=== PATIENT | male | born 1995 | race Caucasian/White ===

== ENCOUNTER 2017-03-21 09:53 | Emergency (ER) | payer OTHER ==
[~2017-03-21] VITALS: Ht 180.3 cm; Wt 78.0 kg
--- NOTE | ~2017-03-21 | CR173 ---
[facility] A Service of [facility] RADIOLOGY TEXT RESULTS PATIENT: MADAY HENDERSON LOCATION: CFTX : 95 UNIT #: [id number] AGE: [address]: Macey Cornell APRN SEX: M ORDER DR: [id number] [facility] [address] [place], [place] [address] [id number] MR#: [id number] Acc #: [id number] NAME: MADAY HENDERSON : 1995 SEX: M STUDY DATE/TIME: 03/21/2017 10:44 UNIT: [facility] ROOM: STUDY DESCRIPTION: CR Knee 3 Views Rt Attending Physician: Macey Cornell A.P.R.N. Ordering Physician: Ed Doctor [id number] [facility] Primary Care Physician: Primary Care Physician No MEDICAL IMAGING REPORT This report is preliminary unless electronic signature is present EXAM Right knee HISTORY Right knee pain. Basketball injury 2 days ago. TECHNIQUE 3 views of the right knee were obtained. FINDINGS Postoperative changes of ACL reconstruction are noted. There is a small to moderate joint effusion. No acute bony abnormalities are seen. There is valgus angulation across the knee with lateral compartment narrowing and lateral osteophyte formation. There is also slight medial subluxation of the distal femur with respect to the tibial plateau. IMPRESSION No acute bony abnormalities are seen. Degenerative changes are seen in the lateral compartment with joint space narrowing and resulting valgus angulation. Previous ACL reconstruction. Small to moderate joint effusion. STAT * RESULT Dictated by... Mitchell Pitts M.D. THIS IS AN ELECTRONICALLY VERIFIED REPORT Mitchell Pitts M.D. at 03/21/2017 4:57 PM [employer] TD: 03/21/2017 11:31 [facility] A Service of [facility] RADIOLOGY TEXT RESULTS PATIENT: MADAY HENDERSON LOCATION: [facility] : 95 UNIT #: [id number] AGE: [address]: Macey Cornell APRN SEX: M ORDER DR: JOB #: [id number] MEDICAL IMAGING REPORT Page 1 of 1 COPY
== END 2017-03-21 12:00 | disposition home or self-care (01) ==
LOC: CED 09:53 → CFTX 09:53
DX: S83.91XA Sprain of unspecified site of right knee, initial encounter (principal); R03.0 Elevated blood-pressure reading, without diagnosis of hypertension; F17.210 Nicotine dependence, cigarettes, uncomplicated; Z79.899 Other long term (current) drug therapy; X58.XXXA Exposure to other specified factors, initial encounter; Y93.67 Activity, basketball; Y99.8 Other external cause status
CPT/HCPCS: 73562; 99283